=== PATIENT | female | born 1995 ===

== ENCOUNTER 2022-08-01 23:45 | Emergency (ER) | payer SELFPAY ==
[2022-08-02 01:26] LABS: Bilirubin Negative (Negative); Blood, Urine Negative (Negative); Clarity Clear (Clear); Glucose, Urine (Dipstick) Normal (Negative); Ketone, Urine Negative (Negative); Leukocyte Negative Leu/uL (Negative); Nitrite Negative (Negative); Protein, Urine (Dipstick) Negative (Neg-Trace); Specific Gravity, Urine 1.011 (1.002-1.036); Urobilinogen Normal mg/dL (Less than 2); pH, Urine 6.5 (5.0-9.0)
== END 2022-08-02 01:47 | disposition left against medical advice (07) ==
LOC: EDSEX 23:45 → ERS 23:45
DX: R10.2 Pelvic and perineal pain (principal)
CPT/HCPCS: 81003; 99284